=== PATIENT | male | born 1965 | race Caucasian/White ===

== ENCOUNTER 2022-08-16 21:01 | Observation (INO) ==
[2022-08-16 21:31] LABS: Basophils # (auto) 0.06 K/uL (0-0.2); Basophils % (auto) 0.8 %; Eosinophils # (auto) 0.16 K/uL (0-0.50); Eosinophils % (auto) 2.1 %; Hematocrit (blood only) 43.6 % (40.1-51.0); Hemoglobin 14.9 g/dl (14.0-18.0); Immature Granulocytes # (auto) 0.02 K/uL (0.00-0.02); Immature Granulocytes % (auto) 0.3 %; Lymphocytes # (auto) 1.28 K/uL (1.2-3.4); Lymphocytes % (auto) 16.8 %; Mean Corpuscular Hemoglobin 30.6 pg (25.0-34.0); Mean Corpuscular Hgb Conc 34.2 g/dL (32.0-36.0); Mean Corpuscular Volume 89.5 fL (80.0-100.0); Mean Platelet Volume 9.3 fL (9.4-12.4); Monocytes # (auto) 0.68 K/uL (0.24-0.82); Monocytes % (auto) 8.9 %; Neutrophils % (auto) 71.1 %; Platelet Count 226 K/uL (130-400); RDW Standard Deviation 42.5 fL (36.4-46.3); Red Blood Count 4.87 M/uL (4.63-6.08)
[2022-08-16 21:46] LABS: Albumin Globulin Ratio 1.9 (0.9-2); Albumin Level 4.3 gm/dl (3.4-5.0); BUN Creatinine Ratio 17.1 (10-20); Bilirubin,Total 0.7 mg/dl (0.2-1.0); Calcium 8.9 mg/dl (8.5-10.1); Creatinine Clr Calc Pharmacy 79.4 ml/min; Est GFR (African American) 74.5 ml/min; Est GFR (Non-African American) 64.3 ml/min; Globulin 2.3 gm/dl (2.5-4.0); Potassium 3.6 mmol/L (3.5-5.1); Total Protein 6.6 gm/dl (6.0-8.3)
[2022-08-16] MEDS ORDERED: ONDANSETRON INJ 2 MG/ML 2 ML VIAL IV STA (22:14)
[2022-08-16] MEDS ORDERED: KETOROLAC TROMETHAMINE 15 MG/ML VIAL IV STA (22:14)
[2022-08-16] MEDS ORDERED: MoRPHine SULFATE 4 MG/ML 1 ML CARP\\VIAL IV STA (22:14)
--- NOTE | 2022-08-17 03:35 | History and Physical Report ---
DATE OF ADMISSION: 08/17/2022. CHIEF COMPLAINT: Left renal colic. HISTORY OF PRESENT ILLNESS: A 57-year-old male with past medical history significant for inflammation of sacroiliac joint, lumbosacral neuritis, who presents with left flank pain. The patient is having pain since yesterday morning 4:00 a.m. and was in the ER yesterday and CAT scan showed findings of 0.9 cm left renal pelvis calculus resulting in mild left hydronephrosis, and did fine and was discharged, to follow as outpatient, but after going home, in the late evening at 7:00 p.m. the pain came back, very severe, and had some blood in the urine and some chills, which prompted him to come to the ER. No nausea, no chest pain, no shortness of breath. No headache, no blurred visions, no earache, no runny nose, no sore throat, no cough. Normal bowel movements. Currently, resting comfortably and hemodynamically stable. ALLERGIES: FLEXERIL, LEVAQUIN, SULFA ANTIBIOTICS. PAST MEDICAL HISTORY: As mentioned above. PAST SURGICAL HISTORY: Reinsert ruptured biceps tendon on the right side. MEDICATIONS: The patient is on alprazolam 0.25 mg p.o. daily p.r.n., Zofran 4 mg p.o. q. 8 hours p.r.n., oxycodone 5 mg p.o. q. 6 hours p.r.n., atorvastatin 20 mg p.o. daily, Flomax 0.4 mg daily. FAMILY HISTORY: Significant for father had hypertension; mother has kidney cancer. SOCIAL HISTORY: , no smoking. Alcohol occasional. No drug use. REVIEW OF SYSTEMS: As per HPI. Rest of the review of systems is negative. PHYSICAL EXAMINATION: GENERAL: The patient is of moderate build, not in acute distress. VITAL SIGNS: Temperature 36.2, pulse 71, respiratory rate 18, blood pressure 109/64, oxygen 96% on room air. HEENT: Pupils equal, round, and reactive to light. Oral mucosa moist. NECK: No JVD. No neck masses. CARDIOVASCULAR: S1 and S2 heard. Regular rate and rhythm. No murmur, no gallop. RESPIRATORY: Normal AP diameter. No accessory muscle use. No wheezing, no crackles. ABDOMEN: Soft, bowel sounds present. Left lower abdominal tenderness present. No CVA tenderness. No guarding, no rigidity, no distention. CENTRAL NERVOUS SYSTEM: Cranial nerves II-XII grossly intact, nonfocal. EXTREMITIES: No edema, no erythema. LABORATORY DATA: WBC 7.6, hemoglobin 14.9, hematocrit 43.6, platelets 226. Sodium 137, potassium 3.6, chloride 108, bicarbonate 21, BUN 21, creatinine 1.2, serum glucose 125, calcium 8.9, total bilirubin 0.7, AST 23, ALT 36, alkaline phosphatase 71. SARS-CoV-2 rapid test negative. Renal ultrasound done today shows 8 mm left ureterovesical junction stone, mild left hydronephrosis. ASSESSMENT AND PLAN: This is a 57-year-old male who presents with left renal colic. 1. Left renal colic: Today's ultrasound shows 8 mm stone in the left ureterovesical junction with mild left hydronephrosis. No signs of active infection. Afebrile,no elevated white count. Will follow urinalysis. Pain control with IV Dilaudid p.r.n. and oxycodone p.o. p.r.n. IV fluids and Flomax.. Monitor in the medical floor. N.p.o. Urology consult in a.m. 2. Hyperlipidemia: Continue statin. 3. Deep venous thrombosis prophylaxis: Sequential compression devices for now. DISPOSITION: Closely monitor in the medical floor. Expect to discharge home and follow with family doctor. Job ID: [id number] MTDD
[2022-08-17] MEDS ORDERED: ALPRAZolam 0.25 MG TABLET PO PRN ×2 (04:27→04:45)
[2022-08-17] MEDS ORDERED: HYDROmorphone INJ 0.5 MG/0.5 ML SYR IV PRN (04:27)
[2022-08-17] MEDS ORDERED: oxyCODONE HCL IR 5 MG TAB (IMMEDIATE RELEASE) PO PRN (04:27)
[2022-08-17] MEDS ORDERED: ONDANSETRON INJ 2 MG/ML 2 ML VIAL IV PRN ×2 (04:27→14:27)
[2022-08-17] MEDS ORDERED: POLYETHYLENE (MIRALAX) 17 GM PACK PO PRN (04:27)
--- NOTE | 2022-08-17 05:51 | Emergency Department Note ---
History of Present Illness General Chief complaint: Kidney Stone Stated complaint: KIDNEY STONE Time Seen by Provider: 08/16/22 22:05 History of Present Illness Maximum Pain Intensity: 9 This 57-year-old presents to the ER complaining of flank pain Location: Flank Quality: Painful Severity: Severe Duration: Today Timing: Today Context: Pain got worse and patient returned Modifying factors: better with rest; worse with activity Patient denies chest pain, dyspnea, fever, chills, urinary symptoms. Home Medications Medication Instructions Recorded Confirmed Type alprazolam 0.25 mg disintegrating 0.25 mg PO DAILY PRN Anxiety 08/16/22 08/16/22 History tablet ondansetron 4 mg disintegrating 4 mg PO Q8H PRN nausea and 08/16/22 08/16/22 Rx tablet vomiting #10 tabs oxycodone 5 mg tablet (Roxicodone) 5 mg PO Q6H PRN pain #12 tabs 08/16/22 08/16/22 Rx rosuvastatin 20 mg tablet 20 mg PO DAILY 08/16/22 08/16/22 History tamsulosin 0.4 mg capsule (Flomax) 0.4 mg PO DAILY #14 caps 08/16/22 08/16/22 Rx Allergies Allergy/AdvReac Type Severity Reaction Status Date / Time cyclobenzaprine Allergy Hives Verified 08/16/22 08:23 [From Flexeril] levofloxacin Allergy Hives Verified 08/16/22 08:30 Sulfa (Sulfonamide Allergy Hives Verified 08/16/22 08:24 Antibiotics) Past Med/Surg History Medical History Kidney stone Surgical History Hx of spinal surgery Social History Smoking Status: Never smoker Second Hand Exposure: No; Do You Dip or Chew Tobacco: No; Hx Alcohol Use: Yes Alcohol type: wine Hx Substance Use: No Preferred Language: Icelandic Communication Ability: Effective Supplier Development Manager Required: No Beliefs That Will Affect Care: None Current Living Situation: Spouse Other Information That Helps Us Care for You: No Feels Safe at Home: Yes Safety Concerns: Feels Safe At This Time Assistive Devices: None Review of Systems A total of 10 systems reviewed and were otherwise negative Physical Exam Vital Signs Vital Signs - 24 hr 08/16/22 21:03 08/16/22 21:01 08/16/22 23:01 Temperature 36.2 C L Temperature Source Temporal Artery Scan Pulse Rate 90 Pulse Rate [Finger] 68 86 Respiratory Rate 22 18 18 Blood Pressure 136/89 Blood Pressure [Right Arm] 150/86 H 128/68 Blood Pressure Mean 104 Blood Pressure Mean [Right Arm] 107 88 Pulse Oximetry 95 98 97 Oxygen Delivery Method Room Air Sepsis Recent Fever Within 48 Hours No Sepsis New/Unexplained Change in Mental Status No Sepsis Action Taken by Nursing No Action Required 08/17/22 01:00 Temperature Temperature Source Pulse Rate Pulse Rate [Finger] 71 Respiratory Rate 18 Blood Pressure Blood Pressure [Right Arm] 109/64 Blood Pressure Mean Blood Pressure Mean [Right Arm] 79 Pulse Oximetry 96 Oxygen Delivery Method Sepsis Recent Fever Within 48 Hours Sepsis New/Unexplained Change in Mental Status Sepsis Action Taken by Nursing VITALS: Vitals are noted on the nurse's note and reviewed by myself. Vital signs stable. GENERAL: Pleasant gentleman who appears in pain, in no acute distress, nondiaphoretic, well-developed well-nourished. SKIN: The skin was without rashes, erythema, edema, or bruising. There is no tenting of the skin. Capillary reflex less than 2 seconds. HEAD: Normocephalic atraumatic. EARS: External auditory canals clear, EYES: Pupils equal round and reactive to light and accommodation. Conjunctivae without injection, sclerae without icterus. Extraocular movements intact. NOSE: Patent, turbinates without inflammation or discharge. MOUTH: Mucous membranes moist. Pharynx without erythema or exudate. Uvula midline. Airway patent. Tongue does not deviate. NECK: Supple without nuchal rigidity. No lymphadenopathy. No thyromegaly. Cervical spine is nontender. No JVD. HEART: Regular rate and rhythm LUNGS: Clear to auscultation bilaterally without wheezes, rales or rhonchi. No retractions or accessory muscle use. ABDOMEN: Positive bowel sounds x 4. Normal tympanic percussion. Soft, nontender, without masses or organomegaly. Lozano sign negative. No guarding or rebound tenderness. No CVA tenderness MUSCULOSKELETAL: No muscle atrophy, erythema, or edema noted. NEURO: Patient was alert and oriented to person place and time. Normal sensation to light and sharp touch. No focal neurological deficits. Course Administered Medications Discontinued Medications Ketorolac Tromethamine (Ketorolac Tromethamine 15 Mg/Ml Vial) 10 mg IV NOW STA Stop: 08/16/22 22:15 Last Admin: 08/16/22 22:34 Dose: 10 mg Documented By: DENI Morphine Sulfate (Morphine Sulfate 4 Mg/Ml 1 Ml Carp\Vial) 4 mg IV NOW STA Stop: 08/16/22 22:15 Last Admin: 08/16/22 22:35 Dose: 4 mg Documented By: DENI Ondansetron HCl (Ondansetron Inj 2 Mg/Ml 2 Ml Vial) 4 mg IV NOW STA Stop: 08/16/22 22:15 Last Admin: 08/16/22 22:35 Dose: 4 mg Documented By: DENI Medical Decision Making Medical Records Attestation: I reviewed the patient's medical records. Home Medications Current Medication List: was personally reviewed by me Laboratory Data Attestation: I reviewed the patient's lab results. Result diagrams: 08/16/22 21:11 08/16/22 21:11 Lab Results 08/16/22 08/16/22 08/16/22 Range/Units 21:11 21:11 21:11 WBC 7.60 (4.8-10.8) K/ul RBC 4.87 (4.63-6.08) M/uL Hgb 14.9 (14.0-18.0) g/dl Hct 43.6 (40.1-51.0) % MCV 89.5 (80.0-100.0) fL MCH 30.6 (25.0-34.0) pg MCHC 34.2 (32.0-36.0) g/dL RDW Std Deviation 42.5 (36.4-46.3) fL RDW Coeff of Dean 13.0 (11.5-14.5) % Plt Count 226 (130-400) K/uL MPV 9.3 L (9.4-12.4) fL Immature Gran % (Auto) 0.3 % Neut % (Auto) 71.1 % Lymph % (Auto) 16.8 % Cottle % (Auto) 8.9 % Eos % (Auto) 2.1 % Baso % (Auto) 0.8 % Neut # (Auto) 5.40 (1.4-6.5) K/uL Lymph # (Auto) 1.28 (1.2-3.4) K/uL Cottle # (Auto) 0.68 (0.24-0.82) K/uL Eos # (Auto) 0.16 (0-0.50) K/uL Baso # (Auto) 0.06 (0-0.2) K/uL Immature Gran # (Auto) 0.02 (0.00-0.02) K/uL Sodium 137 (136-145) mmol/L Potassium 3.6 (3.5-5.1) mmol/L Chloride 108 H (98-107) mmol/L Carbon Dioxide 21 (21-32) mmol/L Anion Gap 8 (3-11) BUN 21 (6-23) mg/dl Creatinine 1.23 (0.6-1.4) mg/dl Est Cr Clr Drug Dosing 79.4 ml/min Est GFR ( Amer) 74.5 ml/min Est GFR (Non-Af Amer) 64.3 ml/min BUN/Creatinine Ratio 17.1 (10-20) Glucose 125 H (70-99(Fasting)) mg/dl Calcium 8.9 (8.5-10.1) mg/dl Total Bilirubin 0.7 (0.2-1.0) mg/dl AST 23 (13-39) U/L ALT 36 (7-52) U/L Alkaline Phosphatase 71 (34-104) U/L Total Protein 6.6 (6.0-8.3) gm/dl Albumin 4.3 (3.4-5.0) gm/dl Globulin 2.3 L (2.5-4.0) gm/dl Albumin/Globulin Ratio 1.9 (0.9-2) SARS-CoV-2, RNA, NAAT NEGATIVE (NEGATIVE) Imaging Data Attestation: I personally reviewed and interpreted this imaging study as follows: MDM Narrative Prior records/ancillary studies reviewed. Triage Nursing notes reviewed. Additional history obtained from nursing The patient's history was concerning for flank pain. Differential diagnosis: Etiologies such as renal colic, appendicitis, diverticulitis, mesenteric ischemia, aortic pathology, infections, inflammatory bowel disease, PUD, biliary pathology, UTI, as well as others were entertained. Physical examination findings: As above. ER treatment provided: Morphine Toradol IV fluids On reassessment the patient felt better. Diagnostic interpretation by me: The labs revealed no worrisome leukocytosis. Urinalysis revealed from earlier today and there was no sign of UTI. Imaging studies: CT reviewed from earlier Consultation: A consultation was placed with the hospitalist. The case was discussed and diagnostics were reviewed. The patient was evaluated in the ER for further treatment. It appears that the patient has isolated renal colic from a left sided stone. Patient still moderate amount of pain. Medicine is consulted. He will be evaluated for admission. By the evaluation outlined above emergent etiologies such as appendicitis, diverticulitis, mesenteric ischemia, aortic pathology, infections, inflammatory bowel disease, PUD, biliary pathology, UTI, as well as others were deemed relatively unlikely. The pt informed about the findings as listed above. All questions were answered and pleased with the treatment. The chart was completed utilizing [employer] Speech voice recognition software. Grammatical errors, random word insertions, pronoun errors, and incomplete sentences are an occassional consequence of this system due to software limitations, ambient noise, and hardware issues. Any formal questions or concerns about the content, text, or information contained within the body of this dictation should be directly addressed to the physician delivery driver assistant for clarification. Impression & Plan Acute abdominal pain in left flank, Kidney stone Discharge Plan Visit Data Chief Complaint: Kidney Stone Stated Complaint: KIDNEY STONE ED Provider: [facility] Midlevel Provider: Beatrice Sandoval Discharge Problem: Acute abdominal pain in left flank, Kidney stone Patient Disposition: Admitted As Inpatient Condition: Good Discharge Instructions Interventions: ED Discharge Assessment Last Done: 08/17/22 03:56
[2022-08-17] MEDS: ACETAMINOPHEN 325 MG TAB PO PRN ×2 (05:52→19:31)
[2022-08-17 07:22] LABS: Basophils # (auto) 0.06 K/uL (0-0.2); Basophils % (auto) 0.9 %; Eosinophils # (auto) 0.13 K/uL (0-0.50); Eosinophils % (auto) 1.9 %; Hematocrit (blood only) 42.9 % (40.1-51.0); Hemoglobin 14.3 g/dl (14.0-18.0); Immature Granulocytes # (auto) 0.02 K/uL (0.00-0.02); Immature Granulocytes % (auto) 0.3 %; Lymphocytes # (auto) 1.35 K/uL (1.2-3.4); Lymphocytes % (auto) 20.2 %; Mean Corpuscular Hemoglobin 30.4 pg (25.0-34.0); Mean Corpuscular Hgb Conc 33.3 g/dL (32.0-36.0); Mean Corpuscular Volume 91.3 fL (80.0-100.0); Mean Platelet Volume 9.2 fL (9.4-12.4); Monocytes # (auto) 0.72 K/uL (0.24-0.82); Monocytes % (auto) 10.8 %; Neutrophils # (auto) 4.39 K/uL (1.4-6.5); Neutrophils % (auto) 65.9 %; Platelet Count 204 K/uL (130-400); RDW Standard Deviation 43.7 fL (36.4-46.3); White Blood Count 6.67 K/ul (4.8-10.8)
[2022-08-17 07:43] LABS: BUN Creatinine Ratio 15.3 (10-20); Calcium 8.6 mg/dl (8.5-10.1); Creatinine Clr Calc Pharmacy 88.4 ml/min; Est GFR (African American) 84.4 ml/min; Est GFR (Non-African American) 72.8 ml/min; Magnesium 2.1 mg/dl (1.7-2.4); Potassium 4.1 mmol/L (3.5-5.1)
[2022-08-17 07:53] LABS: Appearance Urine Cloudy (Clear); Bacteria Urine Automated Negative (Negative); Bilirubin Urine Negative (Negative); Blood Urine 3+ (Negative); Cast Urine Automated 0 /lpf (0-5); Color Urine Yellow; Epithelial Cell Urine Auto 0-5 /lpf (0-5); Glucose Urine UA Negative (Negative); Ketones Urine Negative (Negative); Leukocyte Esterase Urine Negative (Negative); Nitrite Urine Negative (Negative); Protein Urine Trace (Negative); RBC Urine Automated >30 /hpf (0-4); Specific Gravity Urine 1.027 (1.000-1.030); Urobilinogen Urine Negative (Negative); pH Urine 5.5 (4.5-7.5)
[2022-08-17] MEDS: ROSUVASTATIN CALCIUM 20 MG TAB PO SCH (08:43)
[2022-08-17] MEDS ORDERED: TAMSULOSIN HCL 0.4 MG CAP PO SCH (09:00)
--- NOTE | 2022-08-17 10:18 | Ultrasound Report ---
RENAL ULTRASOUND CLINICAL HISTORY: Left flank pain. COMPARISON STUDY: CT of the abdomen and pelvis performed earlier today. TECHNIQUE: Sonography of the kidneys and the urinary bladder was performed. FINDINGS: The right kidney measures 10.9 cm in maximal dimension and the left measures 10.6 cm. There is no right hydronephrosis. There is mild left hydronephrosis, similar to prior CT. Numerous bilater al renal calculi are present. These measure up to 9 mm. Left renal pelvis calculus is better depicted on prior CT. Both ureteral jets were identified. There is debris within the bladder. Multiple bladde r calculi are present. IMPRESSION: 1. Mild left hydronephrosis, similar to prior CT. 2. Numerous bilateral renal calculi. 3. Multiple bladder calculi. ACT 112: Negative or not required by law. Electronically signed by: Zackary Martin M.D. 08/17/2022 10:16 AM
--- NOTE | 2022-08-17 12:54 | Hospitalist Progress Note ---
Date of Service August 17, 2022 Assessment & Plan (1) Calculus of renal pelvis: (2) Renal colic on left side: Plan: Status post cystoscopy with left stent placement and evacuation of bladder stones today. Per urology he is okay to discharge however patient is having some postoperative dysuria and prefers to stay the night. Continue tamsulosin daily, schedule Pyridium 200 mg p.o. 3 times daily x2 to 3 days. Oxybutynin as needed additional bladder spasms as needed. (3) Hyperlipidemia: Plan: Chronic, stable, continue rosuvastatin per home regimen. (4) DVT prophylaxis: Plan: SCDs/ambulation Full code Disposition-to home tomorrow. Nasrin Waldrop DO [facility] Hospitalist Admission and Anticipated Discharge Date Admission Date: August 17, 2022 Subjective 57-year-old man presented with renal colic on the left side. Overnight had severe pain in the left flank. Now postoperatively he is undergone cystoscopy with left retrograde pyelogram with left stent placement and evacuation of bladder stones. Postoperatively he reports a unique feeling with burning when he urinates. Flank pain has resolved. He has some hematuria which is expected. No other lightheadedness chest pain shortness of breath or other issues. He would prefer to stay overnight. Started Pyridium for dysuria and discussed the side effects with him. Verbalized understanding. Review of Systems Review of Systems: All systems were reviewed and negative except indicated above. Physical Exam Physical Exam: CONSTITUTIONAL: WNWD, vitals as above, generally well- appearing, NAD EYES: normal conjunctivae, no scleral icterus ENT: external ear and nose normal, MMM NECK: trachea midline, RESPIRATORY: clear to auscultation bilaterally, no crackles, rales or wheezes, normal respiratory effort CARDIOVASCULAR: regular rate and rhythm, S1 and 2 heard without murmurs, gallops or rubs, no JVD, no peripheral edema CHEST: inspection of chest was normal GASTROINTESTINAL: soft, nontender, ND, no guarding, no CVA tenderness. MUSCULOSKELETAL: strength 5/5 throughout, head is normocephalic and atraumatic, neck supple, normal palpation of chest wall without tenderness SKIN: warm and dry NEUROLOGIC: CN 2-12 grossly intact, no sensory deficit, normal cognition, normal speech, no tremor PSYCHIATRIC: alert cooperative and oriented to person, place and time. Results & Data Results & Data (MN) Vital Signs (Past 12 Hours) Vital Signs Temp Pulse Resp BP Pulse Ox O2 Del Method 08/17/22 07:31 36.9 C 59 L 16 138/71 98 Room Air 08/17/22 04:13 37.1 C 66 18 129/81 98 Room Air 08/17/22 03:50 37.1 C 66 18 129/81 98 Room Air 08/17/22 03:30 58 L 18 103/63 97 Room Air 08/17/22 01:00 71 18 109/64 96 Laboratory Results Short CBC 08/16/22 08/17/22 Range/Units 21:11 07:00 WBC 7.60 6.67 (4.8-10.8) K/ul Hgb 14.9 14.3 (14.0-18.0) g/dl Hct 43.6 42.9 (40.1-51.0) % Plt Count 226 204 (130-400) K/uL BMP 08/16/22 08/17/22 21:11 07:00 Sodium 137 138 Potassium 3.6 4.1 Chloride 108 H 110 H Carbon Dioxide 21 27 BUN 21 17 Creatinine 1.23 1.11 Glucose 125 H 103 H Calcium 8.9 8.6 Liver Function 08/16/22 Range/Units 21:11 Total Bilirubin 0.7 (0.2-1.0) mg/dl AST 23 (13-39) U/L ALT 36 (7-52) U/L Alkaline Phosphatase 71 (34-104) U/L Albumin 4.3 (3.4-5.0) gm/dl Urine 08/17/22 Range/Units 07:15 Urine Color Yellow Urine Appearance Cloudy A (Clear) Urine pH 5.5 (4.5-7.5) Ur Specific [place] 1.027 (1.000-1.030) Urine Protein Trace H (Negative) Urine Glucose (UA) Negative (Negative) Diagnostic Findings Renal Ultrasound 08/16/22 22:14 RENAL ULTRASOUND CLINICAL HISTORY: Left flank pain. COMPARISON STUDY: CT of the abdomen and pelvis performed earlier today. TECHNIQUE: Sonography of the kidneys and the urinary bladder was performed. FINDINGS: The right kidney measures 10.9 cm in maximal dimension and the left measures 10.6 cm. There is no right hydronephrosis. There is mild left hydronephrosis, similar to prior CT. Numerous bilateral renal calculi are present. These measure up to 9 mm. Left renal pelvis calculus is better depicted on prior CT. Both ureteral jets were identified. There is debris within the bladder. Multiple bladder calculi are present. IMPRESSION: 1. Mild left hydronephrosis, similar to prior CT. 2. Numerous bilateral renal calculi. 3. Multiple bladder calculi. ACT 112: Negative or not required by law. Electronically signed by: Zackary Martin M.D. 08/17/2022 10:16 AM Medications Administered Current Inpatient Medications Acetaminophen (Acetaminophen 325 Mg Tab) 650 mg PO Q4H PRN PRN Reason: pain/fever Stop: 09/16/22 04:26 Last Admin: 08/17/22 05:52 Dose: 650 mg Alprazolam (Alprazolam 0.25 Mg Tablet) 0.25 mg PO DAILY PRN PRN Reason: Anxiety Hydromorphone HCl (Hydromorphone Inj 0.5 Mg/0.5 Ml Syr) 0.5 mg IV Q3H PRN PRN Reason: Severe Pain Stop: 08/31/22 04:26 Ondansetron HCl (Ondansetron Inj 2 Mg/Ml 2 Ml Vial) 4 mg IV Q6H PRN PRN Reason: Nausea Stop: 09/16/22 04:26 Oxycodone HCl (Oxycodone Hcl Ir 5 Mg Tab (Immediate Release)) 5 mg PO Q6H PRN PRN Reason: Moderate Pain Stop: 08/31/22 04:26 Polyethylene Glycol (Polyethylene (Miralax) 17 Gm Pack) 17 gm PO DAILY PRN PRN Reason: Constipation Stop: 09/16/22 04:26 Rosuvastatin Calcium (Rosuvastatin Calcium 20 Mg Tab) 20 mg PO DAILY ROSALINDA Stop: 09/16/22 08:59 Last Admin: 08/17/22 08:43 Dose: 20 mg Tamsulosin HCl (Tamsulosin Hcl 0.4 Mg Cap) 0.4 mg PO DAILY ROSALINDA Stop: 09/16/22 08:59 Last Admin: 08/17/22 08:43 Dose: 0.4 mg
[2022-08-17] MEDS ORDERED: MIDAZOLAM HCL 1 MG/ML 2ML VIAL ONE (14:04)
[2022-08-17] MEDS ORDERED: ceFAZolin 2000MG 2,000 MG/15 ML SYR IV ONE (14:06)
--- NOTE | 2022-08-17 14:09 | Urology Consultation ---
Date of Consultation August 17, 2022 Assessment & Plan (1) Renal colic on left side: (2) Calculus of renal pelvis: Plan 57yo M admitted with intractable left flank pain secondary to a 9x5mm left renal pelvis stone causing mild left hydronephrosis. -Afebrile, hemodynamically stable. Labs reviewed-no leukocytosis and normal renal function. -Urinalysis not indicative of infection. -We discussed options for acute stone management with cystoscopy and stent placement. We also discussed that he will ultimately need a second procedure for stone treatment.Discussed ESWL and ureteroscopy. Long discussion on procedures, success rates, risks, and benefits. Expected clinical courses reviewed extensively. Stone free rates were also discussed as well as possibility of multiple procedures. Ureteral stents were discussed as well as post-operative issues and pain management. All questions were answered. -After much consideration, patient has elected to proceed with cystoscopy and left stent placement today. -Risks and benefits to reviewed with patient by Dr. Juarez. OR notified. COVID test negative. Will cover with IV Ancef preoperatively. -Continue supportive care, tamsulosin, and prn pain management. Keep NPO. -Urology will follow Greater than 75 minutes spent for reviewing chart, ER course, imaging, assessment, and discussion of plan and surgical procedures with patient. Supervising Physician Co-Signing Physician Notes Agree with note above. Patient desires stent. Risks and benefits discussed. He does have a large prostate which I explained can make stenting difficult. He understands a stent cannot be placed the other option is a nephrostomy tube. Consent obtained. Patient marked. Ancef to the OR. History of Present Illness Reason for Consultation: Renal colic, left kidney stone Attending Physician: Nasrin Waldrop, History of Present Illness 57-year-old male admitted with intractable left flank pain secondary to a 9 x 5mm left renal pelvis stone with mild left sided hydronephrosis. Patient initially presented to the emergency department yesterday with left flank pain and was found to have a 9 x 5 mm left renal pelvis stone with minimal left hydronephrosis. He was afebrile and hemodynamically stable. No leukocytosis and normal renal function. Urinalysis not indicative of infection. Pain was well controlled and patient was felt stable for discharge. However, he returned overnight due to intractable left flank pain. A renal ultrasound at the time showed mild left hydronephrosis similar to the prior CT. He was also noted to have bilateral nephrolithiasis, large prostate, and multiple bladder calculi. Given his intractable pain, patient was admitted to medicine for further management and pain control. Urology consulted for renal colic, left kidney stone. Patient examined at bedside this afternoon. Awake, resting bed on arrival. No acute distress. Reports pain is well controlled at this point. Denies any fevers or chills. Denies nausea or vomiting. Voiding without issue. Denies hematuria or dysuria. Has been NPO. He does report a prior history of stones requiring surgical intervention several years ago. CT abdomen pelvis- 1. 0.9 x 0.5 cm left renal pelvis calculus which results in minimal left hydronephrosis. 2. Bilateral nephrolithiasis. No ureteral calculi. 3. Enlarged prostate. Multiple bladder calculi. 4. No bowel obstruction. No bowel wall thickening. Renal ultrasound- 1. Mild left hydronephrosis, similar to prior CT. 2. Numerous bilateral renal calculi. 3. Multiple bladder calculi. Allergies Allergy/AdvReac Type Severity Reaction Status Date / Time cyclobenzaprine Allergy Hives Verified 08/16/22 08:23 [From Flexeril] levofloxacin Allergy Hives Verified 08/16/22 08:30 Sulfa (Sulfonamide Allergy Hives Verified 08/16/22 08:24 Antibiotics) Home Medications Medication Instructions Recorded Confirmed Type alprazolam 0.25 mg disintegrating 0.25 mg PO DAILY PRN Anxiety 08/16/22 08/16/22 History tablet ondansetron 4 mg disintegrating 4 mg PO Q8H PRN nausea and 08/16/22 08/16/22 Rx tablet vomiting #10 tabs oxycodone 5 mg tablet (Roxicodone) 5 mg PO Q6H PRN pain #12 tabs 08/16/22 08/16/22 Rx rosuvastatin 20 mg tablet 20 mg PO DAILY 08/16/22 08/16/22 History tamsulosin 0.4 mg capsule (Flomax) 0.4 mg PO DAILY #14 caps 08/16/22 08/16/22 Rx Patient History Medical History Kidney stone Surgical History Hx of spinal surgery Social History Smoking Status: Never smoker Second Hand Exposure: No; Do You Dip or Chew Tobacco: No; Hx Alcohol Use: Yes Alcohol type: wine Hx Substance Use: No Preferred Language: Yoruba Communication Ability: Effective Narcotics And Vice Detective Required: No Beliefs That Will Affect Care: None Current Living Situation: Spouse Other Information That Helps Us Care for You: No Feels Safe at Home: Yes Safety Concerns: Feels Safe At This Time Assistive Devices: None Review of Systems Review of Systems: All systems reviewed & are unremarkable except as noted in HPI & below Physical Exam Constitutional: well developed and well nourished; no acute distress and not ill appearing Eyes: PERRL, conjunctivae normal, anicteric sclerae ENMT: external ear and nose normal, oropharynx normal Neck: normal visual inspection Respiratory: normal respiratory effort and able to speak in complete sentences; no labored breathing and no audible wheezes Gastrointestinal (Abdomen): Inspection/Auscultation: abdomen normal to inspection; abdomen not distended Musculoskeletal: Head/Neck/Chest: normocephalic Skin: No visible rashes or lesions to exposed skin areas Neurologic: moves all extremities and awake Psychiatric: Orientation: alert, oriented x 3 and cooperative Genitourinary: no CVA tenderness Results & Data ([facility]) Vital Signs (Past 12 Hours) Vital Signs Temp Pulse Resp BP Pulse Ox O2 Del Method 08/17/22 07:31 36.9 C 59 L 16 138/71 98 Room Air 08/17/22 04:13 37.1 C 66 18 129/81 98 Room Air 08/17/22 03:50 37.1 C 66 18 129/81 98 Room Air 08/17/22 03:30 58 L 18 103/63 97 Room Air PG Care Time/CCT Total # of Minutes Spent Total Time Spent with Patient: Total time spent is greater than 50% in coordination of care (as documented) at patient's floor/unit and/or counseling patient: Coding Level of Care Code 16846 Office/OBS Consult Lvl 5 Diagnoses Renal colic on left side N23 Calculus of renal pelvis N20.0 Time Spent (min) 75
[2022-08-17] MEDS ORDERED: ePHEDrine sulfate 50 MG/ML AMP IV PRN (14:27)
[2022-08-17] MEDS ORDERED: fentaNYL citrate 100 MCG/2 ML VIAL IV PRN (14:27)
[2022-08-17] MEDS ORDERED: ATROPINE SULFATE 0.1 MG/ML 10ML SYR IV PRN (14:27)
--- NOTE | 2022-08-17 14:27 | Anesthesiology Consultation ---
Date of Service August 17, 2022 Assessment & Plan Chart Review Chart Review: Acceptable Risk for Surgery and Patient NOT seen in Pre Admission Testing Consults Requested none ASA ASA2 Proposed Anesthesia Anesthesia Type: MAC Risk / Benefits Reviewed With: PT / POA / Parent / Guardian, Accepts Plan and Informed Consent Obtained History Surgery Operation Date: 08/17/22 10:35 Proposed Procedures p Cystoscopy, Left Retrograde Pyelogram, Left Stent Placement - Mike Juarez MD Height/Weight Height: 6 ft Weight: 99 kg Allergies Allergy/AdvReac Type Severity Reaction Status Date / Time cyclobenzaprine Allergy Hives Verified 08/16/22 08:23 [From Flexeril] levofloxacin Allergy Hives Verified 08/16/22 08:30 Sulfa (Sulfonamide Allergy Hives Verified 08/16/22 08:24 Antibiotics) Medications Home Medications Medication Instructions Recorded Confirmed Last Taken alprazolam 0.25 mg disintegrating 0.25 mg PO DAILY PRN Anxiety 08/16/22 08/16/22 Unknown tablet ondansetron 4 mg disintegrating 4 mg PO Q8H PRN nausea and 08/16/22 08/16/22 Unknown tablet vomiting #10 tabs oxycodone 5 mg tablet (Roxicodone) 5 mg PO Q6H PRN pain #12 tabs 08/16/22 08/16/22 Unknown rosuvastatin 20 mg tablet 20 mg PO DAILY 08/16/22 08/16/22 Unknown tamsulosin 0.4 mg capsule (Flomax) 0.4 mg PO DAILY #14 caps 08/16/22 08/16/22 Unknown Active Medications Generic Name Dose Route Start Last Admin Trade Name Beanq PRN Reason Stop Dose Admin Acetaminophen 650 mg 08/17/22 04:27 08/17/22 05:52 Acetaminophen 325 Mg Tab PO 09/16/22 04:26 650 mg Q4H PRN Administration pain/fever Rosuvastatin Calcium 20 mg 08/17/22 09:00 08/17/22 08:43 Rosuvastatin Calcium 20 Mg Tab PO 09/16/22 08:59 20 mg DAILY ROSALINDA Administration Tamsulosin HCl 0.4 mg 08/17/22 09:00 08/17/22 08:43 Tamsulosin Hcl 0.4 Mg Cap PO 09/16/22 08:59 0.4 mg DAILY ROSALINDA Administration NPO Date Last Intake of Fluids: 08/16/22 Time Last Intake of Fluids: 23:00 Date Last Intake of Solids: 08/16/22 Time Last Intake of Solids: 19:00 Past Medical History Medical History Kidney stone Exercise / Class Metabolic Activity II 4-5 Yardwork/Stairs/Walk up hill Past Surgical History Surgical History Hx of spinal surgery Past Anesthesia History No Hx of Anesthesia Complications and No Family Hx of Anesthesia Complications History of PONV No Hx of PONV and No Hx of Motion Sickness Social History Smoking Status: Never smoker Do You Dip or Chew Tobacco: No Hx Alcohol Use: Yes Alcohol type: wine alcohol intake frequency: a few times a month Hx Substance Use: No substance use type: does not use Physical Exam Vital Signs Last Vital Signs Temp 37.1 C 08/17/22 14:10 Pulse 70 08/17/22 14:10 Resp 20 08/17/22 14:10 BP 169/97 H 08/17/22 14:10 Pulse Ox 97 08/17/22 14:10 O2 Del Method 08/17/22 14:10 ENMT Mouth: no dentition abnormality Thyromental Distance: > or= 3.5 Finger Breadths Mallampati Class: II Neck normal visual inspection Respiratory normal respiratory effort Auscultation: lungs clear to auscultation bilaterally Cardiovascular Rate/Rhythm: regular rate and regular rhythm Psychiatric Orientation: alert Testing Laboratory Results 08/17/22 07:00 08/17/22 07:00 Urine Color Yellow 08/17/22 07:15 Urine Appearance Cloudy (Clear) A 08/17/22 07:15 Urine pH 5.5 (4.5-7.5) 08/17/22 07:15 Ur Specific [place] 1.027 (1.000-1.030) 08/17/22 07:15 Urine Protein Trace (Negative) H 08/17/22 07:15 Urine Glucose (UA) Negative (Negative) 08/17/22 07:15 Urine Ketones Negative (Negative) 08/17/22 07:15 Urine Nitrite Negative (Negative) 08/17/22 07:15 Ur Leukocyte Esterase Negative (Negative) 08/17/22 07:15 Urine WBC (Auto) 1-5 /hpf (0-5) 08/17/22 07:15 Urine RBC (Auto) >30 /hpf (0-4) H 08/17/22 07:15 U Hyaline Cast (Auto) 0 /lpf (0-5) 08/17/22 07:15 U Epithel Cells (Auto) 0-5 /lpf (0-5) 08/17/22 07:15 Urine Bacteria (Auto) Negative (Negative) 08/17/22 07:15
[2022-08-17] MEDS ORDERED: PROPOFOL IV EMULSION 10 MG/ML 20 ML VIAL IV ONE (14:29)
[2022-08-17] MEDS ORDERED: LIDOCAINE 2% 20 MG/ML 5 ML SYR IV ONE (14:29)
[2022-08-17] MEDS ORDERED: fentaNYL citrate 100 MCG/2 ML VIAL ONE (14:44)
[2022-08-17] MEDS ORDERED: KETAMINE 50 MG/5 ML SYRINGE ONE (14:50)
[2022-08-17] MEDS ORDERED: GLYCOPYRROLATE 0.2 MG/ML VIAL ONE (14:51)
[2022-08-17] MEDS ORDERED: ONDANSETRON INJ 2 MG/ML 2 ML VIAL ONE (14:54)
[2022-08-17] MEDS ORDERED: DIATRIZOATE MEGLUMINE 30% 100ML VIAL INSTIL ONE (15:01)
[2022-08-17] MEDS ORDERED: KETOROLAC 30 MG/ML VIAL ONE (15:01)
--- NOTE | 2022-08-17 15:09 | Post Operative Brief Note ---
PG Immediate Post Op with CF Date of Surgery August 17, 2022 Pre & Post Diagnosis Operation Date: 08/17/22 10:35 Pre-Op Diagnosis: Left Renal Pelvis Stone Post-Op Diagnosis: Left Renal Pelvis Stone, Bladder Stones I identified the patient and participated in the time-out.: Yes Procedure Operation Date: 08/17/22 10:35 Actual Procedures p Cystoscopy, Left Retrograde Pyelogram, Left Stent Placement, Evacuation of Bladder Stones(Not Applicable) - Mike Juarez MD Surgeon Mike Juarez MD Public Health None Estimated Blood Loss 5 Findings See Below Retrograde showed minimal hydronephrosis, which was consistent with CT scan. Significant trilobar hyperplasia of the prostate and numerous bladder stones. I was able to evacuate all but 1 stone, which I will treat at his next procedure for stone treatment. Stent in appropriate position. Specimens Specimen Description: None per surgeon Drains Other (6x26 L stent ) Anesthesia Type MAC Complications none
--- NOTE | 2022-08-17 15:14 | Operative Report ---
PG Post Operative Report Pre & Post Diagnosis Operation Date: 08/17/22 10:35 Pre-Op Diagnosis: Left Renal Pelvis Stone Post-Op Diagnosis: Left Renal Pelvis Stone, Bladder Stones I identified the patient and participated in the time-out.: Yes Procedure Operation Date: 08/17/22 10:35 Actual Procedures p Cystoscopy, Left Retrograde Pyelogram with radiographic interpretation, Left Stent Placement, Evacuation of Bladder Stones(Not Applicable) - Mike Juarez MD Surgeon Mike Juarez MD Resaw Operator None Estimated Blood Loss 5 Findings See Below Retrograde showed minimal hydronephrosis, which was consistent with CT scan. Significant trilobar hyperplasia of the prostate and numerous bladder stones. I was able to evacuate all but 1 stone, which I will treat at his next procedure for stone treatment. Stent in appropriate position. Specimens None Drains 6 Chinese by 24 cm left ureteral stent Anesthesia Type MAC Complications none Indications 57-year-old male with a left renal pelvis stone I suspect was ball valving as well as bladder stones. He presented emergency department twice in 24 hours and elected for stent placement. Description of Procedure After informed consent was obtained, the patient was transported operative suite. MAC anesthesia was induced. The patient was placed in dorsal lithotomy position prepped and draped in a sterile fashion. They received preoperative Ancef for antibiotic prophylaxis. An appropriate surgical timeout was performed. A 22 Chinese rigid scope was inserted per urethra into the bladder. Jarquin cystosco py revealed significant trilobar hyperplasia and numerous bladder stones. I turned my attention the left ureteral orifice and intubated this with a 5 Chinese open-ended catheter. A left retrograde pyelogram was shot which showed minimal hydronephrosis, which corresponded with CT scan. A sensor wire was advanced into the kidney and confirmed fluoroscopically. A 6 Chinese by 26 cm left ureteral stent was deployed with a good proximal coil in the renal pelvis and a good distal coil noted in the bladder. These were confirmed fluoroscopically and under direct visualization, respectively. I then proceeded to evacuate out all but one of the bladder stones. The remaining stone was too large to pass through the scope. I will address this when I treat his kidney stone in the future. Bladder was emptied and scope was removed. This concluded the end of the case. All counts were correct at the end of the case. I was present, scrubbed, and actively participated for the entirety of the proc edure. I attest to the content of the Intraoperative Record and any orders documented therein. Any exceptions are noted below.
--- NOTE | 2022-08-17 15:49 | Anesthesiology Progress Note ---
Date of Service August 17, 2022 Anesthesia Post Procedure Vital Signs Vital Signs: Temp Pulse Pulse Pulse Resp BP BP 08/17/22 15:40 70 15 135/96 08/17/22 15:30 97.2 F L 72 12 140/80 08/17/22 15:20 76 14 143/88 H 08/17/22 15:12 97.7 F 85 22 148/72 H 08/17/22 14:10 98.8 F 70 20 169/97 H 08/17/22 07:31 98.4 F 59 L 16 08/17/22 04:13 98.8 F 66 18 08/17/22 03:50 98.8 F 66 18 08/17/22 03:30 58 L 18 08/17/22 01:00 71 18 08/16/22 23:01 86 18 08/16/22 21:01 68 18 08/16/22 21:03 97.2 F L 90 22 136/89 BP Pulse Ox O2 Del Method O2 Flow Rate 08/17/22 15:40 95 Room Air 08/17/22 15:30 94 Room Air 08/17/22 15:20 96 Room Air 08/17/22 15:12 98 Oxymask 4 08/17/22 14:10 97 Room Air 08/17/22 07:31 138/71 98 Room Air 08/17/22 04:13 129/81 98 Room Air 08/17/22 03:50 129/81 98 Room Air 08/17/22 03:30 103/63 97 Room Air 08/17/22 01:00 109/64 96 08/16/22 23:01 128/68 97 08/16/22 21:01 150/86 H 98 Room Air 08/16/22 21:03 95 Pain Intensity Flank: Pain Intensity: 9 Transfer of Care Handoff Completed per policy Notes Mental Status: alert / awake / arousable and participated in evaluation Patient Amnestic to Procedure: Yes Nausea / Vomiting: adequately controlled Pain: adequately controlled Airway Patency, RR, SpO2: stable & adequate BP & HR: stable & adequate Hydration State: stable & adequate Anesthetic Complications: no major complications apparent and Pt Satisfied with anesthetic care
--- NOTE | 2022-08-17 16:25 | Fluoroscopy Report ---
FL retrograde includes kub CLINICAL HISTORY: CYSTO LEFT STENT COMPARISON STUDY: CT of the abdomen and pelvis and renal ultrasound August 16, 2022. FLUOROSCOPY TIME: 12 seconds. FLUOROSCOPIC IMAGES: 2. FINDINGS: Fluoroscopy was provided during cystoscopy with left retrograde exam and left ureteral sten t insertion. Proximal aspect of stent projects over the left renal pelvis. IMPRESSION: Fluoroscopy provided during cystoscopy, left retrograde exam and left ureteral stent ins ertion. ACT 112: Negative or not required by law. Electronically signed by: Zackary Martin M.D. 08/17/2022 4:24 PM
[2022-08-17] MEDS ORDERED: OXYBUTYNIN CHLORIDE XL 5 MG TABCR PO PRN (17:13)
[2022-08-17] MEDS: PHENAZOPYRIDINE HCL 200 MG TAB PO SCH (20:50)
[2022-08-18] MEDS: PHENAZOPYRIDINE HCL 200 MG TAB PO SCH (09:37)
[2022-08-18] MEDS: ROSUVASTATIN CALCIUM 20 MG TAB PO SCH (09:37)
[2022-08-18] MEDS: ACETAMINOPHEN 325 MG TAB PO PRN (09:39)
--- NOTE | 2022-08-18 10:45 | Urology Progress Note ---
Date of Service August 18, 2022 Assessment & Plan (1) Calculus of renal pelvis: (2) Renal colic on left side: Plan 57yo M admitted with intractable left flank pain secondary to a 9x5mm left renal pelvis stone causing mild left hydronephrosis. -POD #1 s/p Cystoscopy, Left Retrograde Pyelogram with radiographic interpretation, Left Stent Placement, Evacuation of Bladder Stones. -Overall doing ok, some minimal stent discomfort. -Remains afebrile and hemodynamically stable. -Voiding without issue. -Okay for discharge from perspective. -Recommend discharge with tamsulosin, prn Pyridium, prn oxybutynin for stent management. -We will arrange outpatient follow-up with our service for definitive stone treatment. -Thank you for allowing us to participate in the acute care of Mr. Dang. Please reconsult us with additional questions, concerns or changes in patient status. Admission and Anticipated Discharge Date Admission Date: August 17, 2022 Subjective Patient examined at bedside this AM. Awake, resting in bed on arrival. No acute distress. Overall feeling ok. Some minimal stent discomfort, mostly with voiding. Voiding without issue, notes some mild dysuria. No hematuria. No fevers or chills. No nausea or vomiting. Eager to go home. Review of Systems Constitutional: as per Subjective / HPI Gastrointestinal: as per Subjective / HPI Genitourinary: + as per Subjective / HPI Physical Exam Constitutional: no acute distress Respiratory: no respiratory distress and no labored breathing Neurologic: awake Psychiatric: A+Ox3, euthymic affect Results & Data ([facility]) Vital Signs (Past 12 Hours) Vital Signs Temp Pulse Pulse Resp BP BP Pulse Ox 08/18/22 10:39 37.5 C 70 66 18 134/79 124/76 94 08/18/22 07:25 37.5 C 66 18 134/79 94 08/18/22 03:23 36.9 C 63 14 124/76 94 08/17/22 23:19 37.1 C 62 16 128/75 93 O2 Del Method 08/18/22 10:39 08/18/22 07:25 Room Air 08/18/22 03:23 Room Air 08/17/22 23:19 Room Air PG Care Time/CCT Total # of Minutes Spent Total Time Spent with Patient: Total time spent is greater than 50% in coordination of care (as documented) at patient's floor/unit and/or counseling patient: Coding Level of Care Code 15974 Subseq Hosp Care Lvl 2 Diagnoses Calculus of renal pelvis N20.0 Renal colic on left side N23
--- NOTE | 2022-08-18 11:46 | Discharge Summary ---
Discharge Summary Date of Service August 18, 2022 Notes For Next Care Provider Patient needs follow-up with urology Please monitor for LUTS on followup Medication Changes From Visit Oxybutynin 5mg PO daily PRN Phenazopyridine 200mg PO TID PRN Tamsulosin 0.4mg PO qAM Admission HPI Per Admitting Provider HISTORY OF PRESENT ILLNESS: A 57-year-old male with past medical history significant for inflammation of sacroiliac joint, lumbosacral neuritis, who presents with left flank pain. The patient is having pain since yesterday morning 4:00 a.m. and was in the ER yesterday and CAT scan showed findings of 0.9 cm left renal pelvis calculus resulting in mild left hydronephrosis, and did fine and was discharged, to follow as outpatient, but after going home, in the late evening at 7:00 p.m. the pain came back, very severe, and had some blood in the urine and some chills, which prompted him to come to the ER. No nausea, no chest pain, no shortness of breath. No headache, no blurred visions, no earache, no runny nose, no sore throat, no cough. Normal bowel movements. Currently, resting comfortably and hemodynamically stable. Admission Exam Per Admitting Provider PHYSICAL EXAMINATION: GENERAL: The patient is of moderate build, not in acute distress. VITAL SIGNS: Temperature 36.2, pulse 71, respiratory rate 18, blood pressure 109/64, oxygen 96% on room air. HEENT: Pupils equal, round, and reactive to light. Oral mucosa moist. NECK: No JVD. No neck masses. CARDIOVASCULAR: S1 and S2 heard. Regular rate and rhythm. No murmur, no gallop. RESPIRATORY: Normal AP diameter. No accessory muscle use. No wheezing, no crackles. ABDOMEN: Soft, bowel sounds present. Left lower abdominal tenderness present. No CVA tenderness. No guarding, no rigidity, no distention. CENTRAL NERVOUS SYSTEM: Cranial nerves II-XII grossly intact, nonfocal. EXTREMITIES: No edema, no erythema. Principal Dx & Hospital Course #1 = Principal Diagnosis (1) Calculus of renal pelvis: (2) Renal colic on left side: Plan 57 yo M presented with left renal colic. Ultrasound revealed an 8mm stone in the left ureterovesicular junction with mild left hydronephrosis. There was no signs of infection or elevation in creatinine. He was admitted to the hospitalist service and Urology was consulted. Pain meds were given, he was started on IVF and tamsulosin. On 08/17/22 he underwent a cystoscopy, left stent placement with evacuation of bladder stones. Significant trilobar hyperplasia of the prostate and numerous bladder stones were present. All but one stone was able to be evaluated. He had an uneventful post-operative recovery and was sent home in stable condition. At time of discharge he was asymptomatic, hemodynamically stable and afebrile and doing well. Discharge Exam CONSTITUTIONAL: WNWD, vitals as above, generally well-appearing, NAD EYES: normal conjunctivae, no scleral icterus ENT: external ear and nose normal, MMM NECK: trachea midline, RESPIRATORY: clear to auscultation bilaterally, no crackles, rales or wheezes, normal respiratory effort CARDIOVASCULAR: regular rate and rhythm, S1 and 2 heard without murmurs, gallops or rubs, no JVD, no peripheral edema CHEST: inspection of chest was normal GASTROINTESTINAL: soft, nontender, ND, no guarding, no CVA tenderness. MUSCULOSKELETAL: strength 5/5 throughout, head is normocephalic and atraumatic, neck supple, normal palpation of chest wall without tenderness SKIN: warm and dry NEUROLOGIC: CN 2-12 grossly intact, no sensory deficit, normal cognition, normal speech, no tremor PSYCHIATRIC: alert cooperative and oriented to person, place and time. Updated Medication List Medication Instructions Recorded Confirmed Type alprazolam 0.25 mg disintegrating 0.25 mg PO QAM PRN Anxiety 08/16/22 08/23/22 History tablet rosuvastatin 20 mg tablet 20 mg PO QAM 08/16/22 08/23/22 History oxybutynin chloride 5 mg 5 mg PO QAM PRN stent pain #30 tabs 08/18/22 08/23/22 Rx tablet,extended release 24 hr phenazopyridine 200 mg tablet 200 mg PO TID PRN pain in bladder 08/18/22 08/23/22 Rx (Pyridium) #20 tabs tamsulosin 0.4 mg capsule (Flomax) 0.4 mg PO QAM 08/23/22 08/23/22 History Hospital Stay Data Consultations 08/16/22 22:24 ED Decision to Admit Stat 08/17/22 08:00 Consult Urology Routine Procedures Performed Operation Date: 08/17/22 10:35 Actual Procedures p Cystoscopy, Left Retrograde Pyelogram, Left Stent Placement, Evacuation of Bladder Stones(Not Applicable) - Mike Juarez MD Diagnostic Imagining Performed 08/16/22 22:14 US Renal Bladder [US renal/blad retro comp] Urgent 08/17/22 FL retrograde includes kub Routine Pending Results Patient Have Any Pending Studies at Discharge: No Discharge Instructions Given to Patient (Per Discharging Provider) Please take all medications as instructed on discharge list below. You have been given Pyridium and Ditropan to take only as needed for symptoms of discomfort related to the stent. Please follow-up with Urology as instructed next week. It was a pleasure taking care of you! Please call if you have any questions or problems. You can reach a [facility] hospitalist on duty at [facility] 24 hours a day by calling [phone]. Take care of yourself. Nasrin Waldrop, [facility] Hospitalist Total Time Total Time Spent Total Time Spent (In Minutes): 60
== END 2022-08-18 11:44 | disposition home or self-care (01) ==
LOC: ED 21:01 → SUATTDRO 08-17 01:09 → 3N 08-17 01:09 → INTOOBSV 08-17 01:09 → 3N 08-17 03:56
DX: Z88.2 Allergy status to sulfonamides; N13.2 Hydronephrosis with renal and ureteral calculous obstruction; Z88.8 Allergy status to other drugs, medicaments and biological substances; E78.5 Hyperlipidemia, unspecified; Z79.899 Other long term (current) drug therapy; N23 Unspecified renal colic; Z88.1 Allergy status to other antibiotic agents; N21.0 Calculus in bladder